=== PATIENT | male | born 1975 | race African-American/Black ===

== ENCOUNTER 2017-05-07 13:09 | Inpatient (IN) | payer MEDICARE ==
[~2017-05-07] VITALS: Ht 190.5 cm; Wt 161.1 kg
[2017-05-07] MEDS ORDERED: COREG25 MG PO (15:33)
[2017-05-07] MEDS ORDERED: NEURONTIN 300300 MG PO (15:34)
[2017-05-07] MEDS ORDERED: PHOSLO667 MG PO (15:34)
[2017-05-07] MEDS ORDERED: HYDROCODONE-APA1 TAB PO (15:35)
[2017-05-07] MEDS ORDERED: KLONOPIN1 MG PO (15:35)
[2017-05-07] MEDS ORDERED: ROCALTROL0.5 MCG PO (15:36)
--- NOTE | 2017-05-07 15:43 | NUR ---
PATIENT TO ROOM VIA WHEELCHAIR. PATIENT IS ALERT AND ORIENTED AT THIS TIME. PATIENT IS HERE FOR A CLOTTED L AVF. PATIENT DENIES ANY NEEDS OR COMPLAINTS AT THIS TIME. BED LOW AND LOCKED AT THIS TIME. FAMILY AT BEDSIDE. CPOC
[2017-05-07 16:35] VITALS: BP 139/77
[2017-05-07 16:36] VITALS: BMI 44.3
--- NOTE | 2017-05-07 17:29 | NUR ---
PATIENT REQUESTING HIS PAIN MEDICATION AND PHENAGREN. WILL PAGE FOR ORDERS. CPOC
--- NOTE | 2017-05-07 17:46 | NUR ---
WAITING SADDLE STITCHING MACHINE OPERATOR BACK FROM [facility]. CPOC
--- NOTE | 2017-05-07 18:20 | NUR ---
ROUNDS MADE, INFORMED PATIENT WAS ABOUT TO LEAVE. DENIES ANY NEEDS. CPOC
--- NOTE | 2017-05-07 20:56 | NUR ---
PT C/O PAIN IN LEFT AV FISTULA. STATES THAT HE WAS GIVEN HIS NORCO FOR PAIN AND IT IS NOT WORKING. MARINE PAGED AT 2057. TO GET ASSIST WITH PAIN IN LEFT ARM. PT ALSO ASK TO SPEAK WITH RESPRITORY REQARDING NEEDING A C-PAP. PT DENIES ANY OTHER NEEDS. NO S/S OF DISTRESS. BED LOW AND CALL LIGHT IN REACH WILL CPOC
--- NOTE | 2017-05-07 21:49 | NUR ---
PAGESujit HAWTHORNE AGAIN, PT C/O SEVERE PAIN. WILL CPOC
[2017-05-07 21:56] VITALS: BP 144/75
--- NOTE | 2017-05-07 22:32 | NUR ---
PT IN VERY SEVERE PAIN. IN LEFT ARM. CALLED THE ANSWERING SERVICE AGAIN AND THEY STATED THEY WOULD CALL TO WAKE HER UP. WILL CPOC
--- NOTE | 2017-05-07 23:00 | NUR ---
NEW ORDERS FROM MARINE. WILL PUT IN MAR AND GIVE TO PT ORDERED. WILL CPOC
[2017-05-08 06:09] VITALS: BP 127/64
--- NOTE | 2017-05-08 06:30 | NUR ---
PT ASLEEP, AT BED SIDE. NO S/S OF DISTRESS. WILL CPOC
--- NOTE | 2017-05-08 07:30 | NUR ---
PT SITTING UP IN BED SLEEPING EASY TO ARROUSE DENIES NEEDS WILL CONT TO MONITOR
[2017-05-08 08:43] VITALS: BP 116/65
--- NOTE | 2017-05-08 09:40 | NUR ---
CALLED DR STARK OFFICE AND SPOKE WITH YANNI. SHE SAID THAT PT IS ON SCHEDULE FOR SURGERY TODAY. PT SAYS NO ONE HAS SPOKEN TO HIM ABOUT IT AND NO ORDERS HAVE BEEN PLACED TO OBTAIN CONSENT. SHE SAID PEDRO WAS IN SURGERY AT THE MOMENT AND THAT SHE WOULD FIND OUT WHEN HE GETS BACK
[2017-05-08 10:40] LABS: BASOPHILS 0.3 % (0-2); EOSINOPHILS 4.6 % (0-7); HEMATOCRIT 34.6 % (42.0-54.0); HEMOGLOBIN 11.3 g/dL (13.5-17.5); LYMPHOCYTES 23.9 % (15-50); MCH 30.1 pg (26.0-34.0); MCHC 32.7 g/dL (31.0-37.0); MEAN PLATELET VOLUME 11.5 fL (7.4-10.4); MONOCYTES 6.3 % (2-11); NEUTROPHILS 63.9 % (40-80); PLATELET COUNT 140 10x3/uL (130-400); RBC 3.76 10x6/uL (4.20-6.10); RDW 16.7 % (11.5-14.5)
[2017-05-08 10:42] LABS: ANION GAP 21.3 mmol/L (8-16); CREATININE - SERUM 16.1 mg/dL (0.6-1.3)
[2017-05-08 10:45] LABS: POTASSIUM - SERUM 7.3 mmol/L (3.5-5.1)
--- NOTE | 2017-05-08 11:03 | NUR ---
LAB CALLED WITH CRITICAL RESULT OF POTASSIUM 7.3. REPORTED TO KRIS GONZALES APN. SHE SAID TO DO STAT DIALYSIS AND PLACE PT ON TELE. SHE CALLED DIALYSIS TO TELL THEM. PT WAS PLACED ON TELE SINUS RHYTHM, MILD ST ELEVATIONS WITH OCCASIONAL PVCS, ALL REPORTED TO KRIS. PT TAKEN BY WHEELCHAIR STAT TO DIALYSIS.
[2017-05-08 12:43] VITALS: Ht 190.5 cm; Wt 161.1 kg
[2017-05-08 13:09] VITALS: BP 129/65
[2017-05-08 17:17] VITALS: BP 99/57
--- NOTE | 2017-05-08 17:43 | NUR ---
PT SITTING UP IN BED ASLEEP, NO S/S DISTRESS NOTED. FAMILY AT BEDSIDE.
[2017-05-08 21:10] VITALS: BP 89/49
[2017-05-09 00:10] VITALS: BP 107/56
[2017-05-09 05:11] VITALS: BP 118/67
[2017-05-09 05:13] LABS: BASOPHILS 0.3 % (0-2); HEMATOCRIT 36.2 % (42.0-54.0); HEMOGLOBIN 11.8 g/dL (13.5-17.5); IMMATURE GRANULOCYTES 0.8 % (0-5); LYMPHOCYTES 25.7 % (15-50); MCH 30.3 pg (26.0-34.0); MCHC 32.6 g/dL (31.0-37.0); MCV 92.8 fL (80.0-100.0); MEAN PLATELET VOLUME 10.3 fL (7.4-10.4); MONOCYTES 8.7 % (2-11); NEUTROPHILS 60.5 % (40-80); PLATELET COUNT 131 10x3/uL (130-400); RDW 16.9 % (11.5-14.5); WBC 7.8 10x3/uL (4.8-10.8)
[2017-05-09 05:31] LABS: ANION GAP 20.7 mmol/L (8-16); CALCIUM 7.6 mg/dL (8.5-10.1); CARBON DIOXIDE 26.6 mmol/L (21.0-32.0); CREATININE - SERUM 14.2 mg/dL (0.6-1.3); POTASSIUM - SERUM 6.3 mmol/L (3.5-5.1)
--- NOTE | 2017-05-09 07:30 | NUR ---
RECEIVED PT IN BED AWAITING SURGICAL PROCEDURE NPO SINCE MIDNIGHT OFF GOING NURSE REPORTED RENAL WOULD REEVAL PT FOR SURGERY UPON ARRIVAL THIS MORNING K+ 6.3 CALLED AND REPORTED THIS TO SURGEY
--- NOTE | 2017-05-09 08:00 | NUR ---
SPOKE WITH KRIS JONES APN SHE STATED PT WOULD NEED TO GO TO DIALYSIS BEFORE SURGERY TO DECRESE 6.3 POTTASIUM
[2017-05-09 08:06] VITALS: BP 106/67
--- NOTE | 2017-05-09 09:30 | NUR ---
DR VASQUEZ NOTIFIED OF PT GOING TO DIALYSIS FOR 2 HOURS AND STATED WE WOULD NEED TO PUT PT ON SURGERY SCHEDULE FOR TOMORROW DUE TO HE WOULD NOT BE AVAILABLE LATER TODAY SPOKE WITH SURGERY AND RESCHEDULED FOR TOMORROW AT 10AM
[2017-05-09 15:31] VITALS: BP 100/56
[2017-05-09 21:08] VITALS: BP 118/55
[2017-05-10 01:27] VITALS: BP 104/60
[2017-05-10 06:21] LABS: BASOPHILS 0.3 % (0-2); EOSINOPHILS 3.9 % (0-7); HEMATOCRIT 37.4 % (42.0-54.0); HEMOGLOBIN 12.3 g/dL (13.5-17.5); IMMATURE GRANULOCYTES 0.8 % (0-5); LYMPHOCYTES 22.4 % (15-50); MCH 30.2 pg (26.0-34.0); MCHC 32.9 g/dL (31.0-37.0); MCV 91.9 fL (80.0-100.0); MEAN PLATELET VOLUME 11.7 fL (7.4-10.4); MONOCYTES 9.1 % (2-11); NEUTROPHILS 63.5 % (40-80); PLATELET COUNT 141 10x3/uL (130-400); RBC 4.07 10x6/uL (4.20-6.10); RDW 16.6 % (11.5-14.5); WBC 8.9 10x3/uL (4.8-10.8)
[2017-05-10 06:51] VITALS: BP 97/56
[2017-05-10 07:04] LABS: ANION GAP 19.6 mmol/L (8-16); CALCIUM 7.8 mg/dL (8.5-10.1); CARBON DIOXIDE 29.9 mmol/L (21.0-32.0); CREATININE - SERUM 12.9 mg/dL (0.6-1.3); POTASSIUM - SERUM 5.5 mmol/L (3.5-5.1)
--- NOTE | 2017-05-10 07:30 | NUR ---
RESTING QUIETLY AWAITING SURGICAL PROCEDURE
--- NOTE | 2017-05-10 07:40 | NUR ---
ASSESSMENT COMPLETED. TELEMERTY SHOWS SR 82. 02 AT 2 L/M PER NC.LEFT AC SL. AWAKE AND ALERT. WILL MONITOR
[2017-05-10 08:24] VITALS: BP 99/53
--- NOTE | 2017-05-10 10:57 | NUR ---
SURGERY DELAYED. WILL BE DONE LATER TODAY. PT NOTIFIED
[2017-05-10 12:11] VITALS: BP 109/64
--- NOTE | 2017-05-10 16:50 | NUR ---
PT PRE OP ED. TO OR PER BED
--- NOTE | 2017-05-10 19:20 | NUR ---
PT BACK VIA BED FROM PACU. VSS, AFEBRILE ON ARRIVAL. PT SEDATED, BUT AWAKENS TO VOICE. SATS LOW 90'S ON ROOM AIR. PT C/O NAUSEA AND PAIN, RATES @ 8/10 ON PAIN SCALE. BUPRENEX 0.2 MG IV AND PHENERGAN 25 MG IV GIVEN DILUTED WITH 20 ML NS FOR ADMINISTRATION. LEFT UPPER ARM WITH SURGICAL DRSG, CDI. LEFT RADIAL PULSE PALAPABLE AND GOOD CAP REFILL. [facility] ON MONITOR - HR 90-100. FAMILY IN AT THE BEDSIDE. WILL CONT TO MONITOR.
[2017-05-10 21:07] VITALS: BP 102/75
--- NOTE | 2017-05-10 22:57 | NUR ---
PT RESTING WELL. DENIES ANY FURTHER C/O PAIN. PT REMAINS SLEEPING, BUT EASILY AWAKENS TO VOICE. 2+ LEFT RADIAL PULSE PALPATED. GOOD CAP REFILL. WILL CONT TO MONITOR.
[2017-05-11 00:58] VITALS: BP 106/54
[2017-05-11 04:53] LABS: BASOPHILS 0.3 % (0-2); HEMOGLOBIN 11.7 g/dL (13.5-17.5); IMMATURE GRANULOCYTES 0.6 % (0-5); LYMPHOCYTES 13.9 % (15-50); MCH 29.9 pg (26.0-34.0); MCHC 32.5 g/dL (31.0-37.0); MCV 92.1 fL (80.0-100.0); MEAN PLATELET VOLUME 11.2 fL (7.4-10.4); NEUTROPHILS 75.2 % (40-80); PLATELET COUNT 148 10x3/uL (130-400); RBC 3.91 10x6/uL (4.20-6.10); RDW 16.4 % (11.5-14.5); WBC 9.9 10x3/uL (4.8-10.8)
[2017-05-11 05:09] LABS: ANION GAP 20.8 mmol/L (8-16); CARBON DIOXIDE 27.8 mmol/L (21.0-32.0); CREATININE - SERUM 15.6 mg/dL (0.6-1.3)
[2017-05-11 05:11] LABS: POTASSIUM - SERUM 6.6 mmol/L (3.5-5.1)
[2017-05-11 05:19] VITALS: BP 102/42
[2017-05-11 07:39] VITALS: BP 128/57
--- NOTE | 2017-05-11 07:51 | NUR ---
ASSESSMENT DONE. DENIES NEEDS.
--- NOTE | 2017-05-11 08:54 | NUR ---
TO HD PER BED
--- NOTE | 2017-05-11 09:54 | NUR ---
IN DIALYSIS AT THIS TIME. FAMILY AT BS. WILL CONT. PLAN OF CARE.
[2017-05-11 11:56] VITALS: BP 87/50
[2017-05-11 15:51] VITALS: BP 91/65
--- NOTE | 2017-05-11 17:58 | NUR ---
WITHOUT CHANGES OR DISTRESS NOTED AT THIS TIME. DENIES NEEDS.
[2017-05-11 19:00] VITALS: BP 117/64
[2017-05-12] VITALS: BP 135/88
[2017-05-12 04:00] VITALS: BP 125/76
[2017-05-12 05:15] LABS: BASOPHILS 0.3 % (0-2); EOSINOPHILS 3.5 % (0-7); HEMATOCRIT 31.3 % (42.0-54.0); HEMOGLOBIN 10.3 g/dL (13.5-17.5); IMMATURE GRANULOCYTES 0.5 % (0-5); LYMPHOCYTES 22.5 % (15-50); MCH 29.8 pg (26.0-34.0); MCHC 32.9 g/dL (31.0-37.0); MCV 90.5 fL (80.0-100.0); MEAN PLATELET VOLUME 11.9 fL (7.4-10.4); MONOCYTES 8.3 % (2-11); NEUTROPHILS 64.9 % (40-80); PLATELET COUNT 120 10x3/uL (130-400); RBC 3.46 10x6/uL (4.20-6.10); RDW 16.1 % (11.5-14.5); WBC 7.6 10x3/uL (4.8-10.8)
[2017-05-12 05:32] LABS: ANION GAP 18.5 mmol/L (8-16); CARBON DIOXIDE 28.7 mmol/L (21.0-32.0); POTASSIUM - SERUM 4.2 mmol/L (3.5-5.1)
[2017-05-12 05:57] LABS: CALCIUM 6.8 mg/dL (8.5-10.1)
--- NOTE | 2017-05-12 07:45 | NUR ---
ASSESSMENT DONE. DENIES NEEDS. TO OR PER BED
--- NOTE | 2017-05-12 08:30 | NUR ---
HEMOSPLIT TO RIGHT SIDE CHEST.
--- NOTE | 2017-05-12 09:32 | NUR ---
RECIVED FROM RR. TO HD PER ORDERS
--- NOTE | 2017-05-12 11:52 | OP ---
PATIENT NAME: TONY MOREAU MEDICAL RECORD: [id number] :75 LOCATION:D. D.2123 ADMISSION DATE:05/07/17 SURGEON: DARREL VASQUEZ MD DATE OF OPERATION: 05/12/2017 REFERRING PHYSICIAN: Dr. Joel Puri. 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 OPERATION PERFORMED: Insertion of a 23 cm HemoSplit tunneled dialysis catheter via the right internal jugular vein with ultrasound-guided access and fluoroscopy guidance. SURGEON: Darrel Vasquez MD ANESTHESIA: TIVA team with propofol per TERMINAL SYSTEM OPERATOR and local 1% lidocaine. PREOPERATIVE NOTE: Mr. Moreau is a 41-year-old -[place] male from [place] who has end-stage renal disease and is on chronic hemodialysis there in [place]. He has dialyzed for several years successfully with a left upper extremity brachiocephalic AV fistula, though he has had problems with recurring cephalic arch stenosis which had been dilated and stented in the past and just recently last week, I believe, Dr. Puri performed a stenting of the intrastent stenosis in the cephalic arch placing a PTFE covered stent within the previously inserted bare metal stent to treat that stenosis. As a result, flow increased in his fistula and he for the first time developed symptoms of steal syndrome in his right hand. He was admitted to the hospital last week and I was able to get him to the operating room only on Thursday due to scheduling difficulties in the OR. I performed a ZULUAGA banding with a fistulogram and selective brachial arteriogram at that time. The banding did indeed successfully reduce flow in the fistula; however, the fistula has now thrombosed despite Plavix therapy, which was initiated the day of that operation. He needs to dialyze and so he is brought to the operating room this morning to have a HemoSplit catheter inserted with plans for him to have dialysis later this morning and then later today be returned to the operating room where under general anesthesia, I will plan to perform an open thrombectomy and revision and at this time, I am planning to proximalize the arterial anastomosis using a PTFE jump graft from the proximal brachial artery. This should allow significant increased flow in the fistula to help keep it open and at the same time yield substantial relief of steal symptoms. Blood loss during the procedure today was insignificant and unreplaced. All sponges, instruments, and needles were accounted for. No drain was used and no surgical specimen was submitted for histopathology. TRANSINT:[id number] Voice Confirmation ID: [id number] DOCUMENT ID: [id number] OPERATIVE REPORT [id number] TONY MOREAU JAMES MD at 1152 CC: OLIVIA RODRIGUEZ MD [id number] DICTATION DATE: 05/12/17 0846 COMPUTER TRAINER: 05/12/17 1106 ADM IN [facility] [address] [place] [address]
--- NOTE | 2017-05-12 11:52 | OP ---
PATIENT NAME: TONY MOREAU MEDICAL RECORD: [id number] :75 LOCATION:D. D.2123 ADMISSION DATE:05/07/17 SURGEON: DARREL VASQUEZ MD DATE OF OPERATION: 05/10/2017 REFERRING PHYSICIAN: Dr. Joel Puri PREOPERATIVE DIAGNOSES: End-stage renal disease and dependence on hemodialysis, mechanical complication of arteriovenous fistula left arm, steal syndrome. POSTOPERATIVE DIAGNOSES: End-stage renal disease and dependence on hemodialysis, mechanical complication of arteriovenous fistula left arm, steal syndrome. OPERATION PERFORMED: Fistulogram and selective left brachial arteriogram and open Mcpherson banding of AV fistula. SURGEON: Darrel Vasquez MD ANESTHESIA: General with LMA per STATISTICAL METHODS PROFESSOR. PREOPERATIVE NOTE: Mr. Moreau is a 41-year-old -[place] male from [place], he has end-stage renal disease and has been dialyzing for several years with a left brachiocephalic AV fistula. He has had problems with cephalic arch stenoses and has had a prior bare metal stent inserted in the cephalic arch. He had developed intrastent recurrent stenoses and recently Dr. Puri treated him with placement of a PTFE covered stent in the cephalic arch, which relieved his recurrent cephalic arch stenosis. Subsequent to that, he developed pain in the hand, believed to be due to steal syndrome. The patient's hand preoperatively is warm and pink with a faintly palpable radial artery pulse. There are no areas of ulceration or gangrene. He is brought to the operating room at this time to perform a banding procedure. DESCRIPTION OF PROCEDURE: With the patient under anesthesia in supine position, was prepped and draped in sterile manner. I examined him first with hand-held duplex ultrasound and also a hand-held continuous wave Doppler and noted the pulsatile waveform in the radial artery at the wrist and identified the anatomy of the juxta-anastomotic segment in the upper arm and antecubital space. I made a transverse incision and exposed and dissected circumferentially the juxta-anastomotic segment. I then accessed the fistula at about the mid humeral point with micropuncture technique, this led up to placement of a 6-Serbian introducer. I then advanced a 0.035 angled Glidewire distally through the fistula and over the arterial anastomosis and proximally into the brachial artery. I inserted a glide catheter over that and performed a selective brachial artery arteriogram, which did demonstrate flow into the distal brachial artery below the arterial anastomosis. I then placed a 4 mm diameter balloon in the juxta-anastomotic segment and placed two 2-0 Prolene ligatures around the fistula over the balloon and these were tied down snugly with the balloon kept at 15 atmospheres of pressure inflation. Two ties were only a few millimeters apart. The balloon was deflated and removed and I noted that there was a definite improvement in the palpable radial pulse and there was improvement with the appearance of the polyphasic pulsatile waveform by Doppler at the wrist in the radial artery. I repeated the selective brachial artery arteriogram and saw the very poor flow in the fistula. I then inserted a 5-mm balloon with the OPERATIVE REPORT [id number] TONY MOREAU intent of stretching the initially placed Prolene ligatures. However, I was unable to pass a balloon through the iatrogenic stenosis, so the 2 Prolene sutures were removed. The 5-mm balloon advanced into the JA segment and a new single 2-0 Prolene ligature tied down over the balloon inflated to 15 atmospheres. The balloon was then removed and I noted that there was an improved radial artery pulse at the wrist and Doppler demonstrated a multiphasic waveform, not quite as good or strong as previously after the banding over a 4-mm balloon. I repeated the selective brachial arteriogram and this time noted some increased flow in the fistula and still good flow distally into the forearm. In my opinion this was a satisfactory point of compromise. There was increased flow definitely to the hand as manifested primarily by increasing palpable pulsation in the radial artery and the improvement in the Doppler arterial flow waveform. There was maintenance of flow in the fistula as well. I am concerned that the reduced flow could lead to thrombosis and clotting of the fistula and so we will begin the patient on Plavix this evening. I think he should be considered for long-term either Plavix or other anticoagulation. The patient was awakened and taken to the recovery room in stable condition with a soft bruit audible over his fistula and rather weak palpable pulsation within this steph fistula. There was no blood loss during the procedure. All sponges, instruments and needles were accounted for. The wound was closed with interrupted inverted 3-0 Vicryl and running intracuticular 4-0 Monocryl and Dermabond glue and dressed with Maxorb Ag, Tegaderm and Cavilon skin prep. PLAN: The patient will be started on Plavix tonight. He will be observed in the morning. If he is due for dialysis, he will have dialysis here again tomorrow. We need to document that this fistula is patent before he is allowed to leave to go home to [place] tomorrow. TRANSINT:[id number] Voice Confirmation ID: [id number] DOCUMENT ID: [id number] DARREL VASQUEZ MD at 1152 CC: KHALIF ROLDAN III MD, OLIVAI VALERA MD and JOEL PURI [id number] DICTATION DATE: 05/10/171912 INSURANCE ACCOUNT ASSISTANT: 05/10/172053 ADM IN [facility] [address] [id number]
--- NOTE | 2017-05-12 13:13 | NUR ---
Nutrition Follow Up: Pt is NPO at this time. Pt to go to OR for hemosplit placement today. Wt stable. +BM 05/08/17. Meds and labs reviewed. Rec resume diet when medically feasible. RD following.
--- NOTE | 2017-05-12 13:30 | NUR ---
RETURN FROM HD TO OR PER BED
--- NOTE | 2017-05-12 14:54 | NUR ---
RICK LOT [id number] EXP 03/22/18
--- NOTE | 2017-05-12 17:23 | NUR ---
RECIVED FROM RR PER BED. LT ARM DRSG C/D. GOOD B&T. FAMILY AT SIDE. WITHOUT DISTRESS NOTED AT THIS TIME.
--- NOTE | 2017-05-12 19:17 | NUR ---
MELITON ROACH GIVEN AT PT REQUEST. MULTIPLE FAMILY MEMBERS AT BED SIDE, PTS BP ELEVATED 190/95. PT C/O PAIN TO LEFT ARM, CATINA DAY SHIFT NURSE EXPLAINED TO PT THAT HE HAD JUST HAD HIS PAIN SHOT IN RECOVERY BUT WE CAN GIVEN HIM A NORCO NOW, PT DECLINED THE PAIN PILL, WANTS THE PAIN SHOT, INFORMED HIM THAT IT WILL BE CLOSER TO 9:15 BEFORE I CAN BRING IT IN.
--- NOTE | 2017-05-12 19:43 | NUR ---
CHANGED DISPOSABLE BP CUFF TO LARGER MAROON CUFF, BP RECHECKED, 121/67. NORCO 1 TAB GIVEN FOR C/O PAIN TO LEFT ARM, RATES PAIN AT A 10 ON PAIN SCALE. PHENERGAN 25 MG GIVEN ALONG WITH NORCO TO PREVENT NAUSEA.
[2017-05-12 20:23] VITALS: BP 109/105
--- NOTE | 2017-05-13 01:05 | NUR ---
PT IN BED RESTING QUIETLY. BED IN LOW POSITION, CALL LIGHT WITHIN REACH. WILL CTM.
[2017-05-13 01:50] VITALS: BP 90/63
--- NOTE | 2017-05-13 04:07 | NUR ---
PHENERGAN 25 MG GIVEN FOR C/O NAUSEA.
--- NOTE | 2017-05-13 04:41 | NUR ---
BUPRENEX 0.2 MG GIVEN FOR C/O PAIN TO LEFT ARM, RATES PAIN AT A 9 ON PAIN SCALE. ICE PACK GIVEN AND LAID ON TOP OF LEFT ARM.
[2017-05-13 05:01] LABS: BASOPHILS 0.2 % (0-2); EOSINOPHILS 0.9 % (0-7); HEMATOCRIT 34.5 % (42.0-54.0); HEMOGLOBIN 11.4 g/dL (13.5-17.5); IMMATURE GRANULOCYTES 0.7 % (0-5); LYMPHOCYTES 7.7 % (15-50); MCV 90.8 fL (80.0-100.0); MONOCYTES 8.3 % (2-11); NEUTROPHILS 82.2 % (40-80); PLATELET COUNT 124 10x3/uL (130-400); RDW 16.3 % (11.5-14.5)
[2017-05-13 05:11] LABS: WBC 9.8 10x3/uL (4.8-10.8)
[2017-05-13 05:31] LABS: ANION GAP 16.8 mmol/L (8-16); CALCIUM 7.1 mg/dL (8.5-10.1); CARBON DIOXIDE 24.1 mmol/L (21.0-32.0); CREATININE - SERUM 15.8 mg/dL (0.6-1.3)
[2017-05-13 05:32] LABS: POTASSIUM - SERUM 5.9 mmol/L (3.5-5.1)
[2017-05-13 05:54] VITALS: BP 121/61
[2017-05-13 07:00] VITALS: BP 114/60
--- NOTE | 2017-05-13 10:00 | NUR ---
IN DIALYSIS AT THIS TIME. WILL CONT. PLAN OF CARE.
[2017-05-13 15:07] VITALS: BP 109/57
--- NOTE | 2017-05-13 17:59 | NUR ---
PATIENT IN BED RESTING AT THIS TIME. PATIENT STATES "IM NOT SICK TO MY STOMACH ANYMORE." NO COMPLAINTS OF PAIN OR DISCOMFORT NOTED AT THIS TIME. CALL LIGHT AND WATER ARE WITHIN REACH. IS AT BEDSIDE
--- NOTE | 2017-05-13 19:33 | NUR ---
ASSESSMENT COMPELTE, A&O, RESPERATIONS EVEN AND UNALABORED ON RA. IV TO RIGHT AC SL, SITE CLEAN AND DRY. RIGHT CHEST HEMOSPLIT WITH DRSG INTACT. AV FISTUA TO LEFT ARM (+,+). SMALL DRSGS NOTED FROM THROMBECTOMY DONE ON 05/12/17. PT STATED THAT ARM IS FEELING BETTER TODAY THEN FROM YESTERDAY AND IS NOW ABLE TO LIFT HIS ARM UP AND MOVE IT AROUND. ICE PACK GIVEN AT PT REQUEST TO HELP EASE THE SWELLING AND PAIN, ALSO ELEVATED LEFT ARM ON PILLOW. PTS REMIANS AT BED SIDE, BED LOW, CL IN REACH, NO OTHER NEEDS EXPRESSED AT THIS TIME, BED LOW, CL IN REACH.
[2017-05-13 21:14] VITALS: BP 98/57
--- NOTE | 2017-05-13 22:04 | NUR ---
HS MEDS GIVEN WITH FRESH ICE WATER.
[2017-05-14 01:16] VITALS: BP 117/59
--- NOTE | 2017-05-14 01:36 | NUR ---
BUPRENEX 0.3 MG GIVEN FOR C/O PAIN, RATES PAIN AT AN 8 ON PAIN SCALE. ICE PACK GIVEN AND PLACED ON LEFT ARM. ASLEEP AT BED SIDE.
--- NOTE | 2017-05-14 02:36 | NUR ---
RESTING WITH EYES CLOSED, RESPERATIONS EVEN, NO S/S DISTRESS NOTED.
[2017-05-14 05:39] VITALS: BP 107/55
--- NOTE | 2017-05-14 07:25 | NUR ---
ASSESSMENT COMPLETED.O2 AT 2 L/M PER NC. TELEMERTY SHOWS SR. RIGHT CHEST HEMOSPLIT AND RIGHT AC SL. LEFT AVF. DENIES ANY NEEDS AT PRESENT TIME. WILL MONITOR
--- NOTE | 2017-05-14 07:30 | NUR ---
ASSESSMENT COMPLETED. DENIES ANY NEEDS. LEFT ARM SL TELEMETRY SHOWS SR 64 PRER AND TAKEN TO PET SITTER.
[2017-05-14 07:49] VITALS: BP 90/56
--- NOTE | 2017-05-14 08:05 | NUR ---
RESP UL ON . AT BS. CALL LIGHT IN REACH. WILL MONITOR NEEDS.
--- NOTE | 2017-05-14 10:00 | OP ---
PATIENT NAME: TONY MOREAU MEDICAL RECORD: [id number] :75 LOCATION:D. D.2123 ADMISSION DATE:05/07/17 SURGEON: DARREL VASQUEZ MD DATE OF OPERATION: 05/12/2017 REFERRING PHYSICIAN: Joel Puri SURGEON: Darrel Vasquez MD ANESTHESIA: General by LMA per HOGSHEAD ROLLER. PREOPERATIVE DIAGNOSIS: Thrombosis of left arm AV fistula subsequent to banding procedure done approximately 48 hours ago to treat steal syndrome in the left upper extremity. POSTOPERATIVE DIAGNOSIS: Thrombosis of left arm AV fistula subsequent to banding procedure done approximately 48 hours ago to treat steal syndrome in the left upper extremity. OPERATION PERFORMED: Open revision and thrombectomy of AV fistula, left upper extremity brachiocephalic. PREOPERATIVE NOTE: Mr. Moreau is a 41-year-old -[place] male from [place], who has been on hemodialysis for a considerable period of time with a left brachiocephalic AV fistula. He has had recurring cephalic arch stenoses, which was treated with a stent and he subsequently developed an intrastent stenosis, which Dr. Puri recently treated with an intrastent PTFE covered balloon. It was thought that that restored significant flow in the fistula, and subsequent to that, he developed steal symptoms in his left hand. He was admitted to the hospital for banding or proximal elevation of his fistula. His banding was not able to be done until Thursday, this past weekend. At that time, I placed a single Prolene ligature around the JA segment of the fistula over a fully inflated 5-mm diameter balloon. When this had been done around with a 4-mm balloon and when 2 ligatures were used, it excessively diminished flow in the fistula. I still was concerned after the procedure that thrombosis of the fistula was possible and I placed him on Plavix; however, it apparently thrombosed anyway. His fistula was seemingly without pulsation, thrill, or bruit. Attempts to dialyze him with the fistula on Thursday were unsuccessful. He was brought to the operating room earlier today just for placement of a HemoSplit catheter as he needed to have dialysis before he could have another operation. He has had dialysis successfully today and now he is returned to the operating room for general anesthesia and revision of the left arm fistula. I am hopeful that ligating the fistula distally and proximalizing the arterial origin to the proximal brachial artery or axillary artery will provide enough flow to keep the fistula open and at the same time relieve his steal symptoms. PROCEDURE: Under anesthesia, in supine position, the patient's left arm and axilla were prepped and draped in a sterile manner. I reopened the transverse incision at the antecubital level and removed the Prolene suture from the JA segment. I massaged the segment a little bit and then noted that the patient had restored pulsation in the fistula with a soft thrill. I made an incision then on the medial aspect of the upper arm and exposed the brachial artery, which was controlled with proximal and distal Silastic loops. The brachial artery was quite large, being in about 12 to 14 mm in diameter. The patient was systemically heparinized and the fistula then ligated just immediately proximal OPERATIVE REPORT [id number] TONY MOREAU to the arterial anastomosis. The ligation performed with #0 silk. The fistula was clamped proximally and venotomy made in the JA segment. The wall of that segment was quite thickened and partially calcified and there was organized clot within it. I removed clot from that segment and from the body of the fistula with a 5-Nigerien Afua embolectomy catheter. Most of the clot that I removed was organized and not fresh. I do not think that he had actually had an obstructing or occlusive thrombus, I think just his flow had been so slow and sluggish through this very large fistula that it was essentially nonfunctional. At any rate, after thrombectomy, I flushed the fistula with heparinized saline and then again it was clamped. I took a 6-mm standard wall Propaten PTFE graft, beveled it in, and anastomosed it end-to-side to the venotomy in the fistula. This was done with running 6-0 Prolene and the suture line was additionally sealed with BioGlue. The graft was flushed with heparinized saline, and when clamps were removed, the suture line was hemostatic. I passed the graft through a subcutaneous tunnel on the medial aspect of the arm up to the proximal incision and anastomosed it there to the brachial artery. That was done with the brachial artery occluded with Silastic loops and an arteriotomy of approximately 7 mm diameter. The anastomosis was done end of graft to side of artery with running 6-0 Prolene. The patient's heparin was partially reversed with 20 mg of protamine. The wound was irrigated with Ancef and gentamicin solution. I infiltrated and irrigated with 0.25% Marcaine without epinephrine. Doppler examination confirmed good flow in the fistula now with a palpable thrill and pulsation. I confirmed also good Doppler continuous pulsatile flow in the brachial artery distal to the antecubital level and in the radial artery at the wrist. The wounds were then closed with interrupted inverted 3-0 Vicryl, running intracuticular 4-0 Monocryl, and Dermabond glue. They were further dressed with Maxorb Ag, Tegaderm, and Cavilon skin prep. The patient was then awakened and taken to the recovery room. Blood loss throughout was about 10 cc, none was replaced intraoperatively. All sponges, instruments, and needles were accounted for. No drain was used and no specimen was submitted for histopathology. I did not perform an angiogram. PLAN: The patient will be observed here in the hospital overnight. If he needs dialysis, he can dialyze here tomorrow. If not, he can resume his usual dialysis schedule in [place]. I believe that he can be dialyzed now or we should be trying to dialyze him with his established left arm fistula and assuming that it continues to work, then he can be scheduled for removal of his tunneled dialysis catheter at the [facility] here in [place], but I would schedule him for that same day to have an angiogram of his left fistula before taking out the catheter. Also, I will continue him on Plavix. TRANSINT:[id number] Voice Confirmation ID: [id number] DOCUMENT ID: [id number] DARREL VASQUEZ MD at 1000 CC: KHALIF ROLDAN III MD, OLIVIA VALERA MD and JOEL PURI [id number] DICTATION DATE: 05/12/171652 CONSTRUCTION SAFETY CONSULTANT: 05/12/17 866 ADM IN [facility] [address] [facility], [facility]
--- NOTE | 2017-05-14 11:31 | NUR ---
BACK FROM TORCH HEATER. V/S STABLE. RIGHT GROIN SOFT WITH DRSG DRY AND INTACT. TELEMERTY SHOWS SR. WILL MONITOR
[2017-05-14 12:05] VITALS: BP 104/63
--- NOTE | 2017-05-14 15:34 | NUR ---
PT DCD . IV DCD WITH TIP INTACT. INSTRUCTIONS GIVEN TO PT. TO PRIVATE CAR PER WHEELCHAIR
--- NOTE | 2017-05-14 17:19 | NUR ---
Patient Name: TONY MOREAU Admission Status: Urgent Accout number: [id number] Admission Date: 05-07-2017 : 1975 Admission Diagnosis:OTH COMPLICATION OF VASCULAR PROSTH DEV/JOAN INEVA Attending: INDU HAY Current LOS: 7 Anticipated DC Date: 05-14-2017 Planned Disposition: Home Primary Insurance: MEDICARE A & B LATE ENTRY: Discharge Planning Comments: * Is the patient Alert and Oriented? Yes 0 * How many steps to enter\exit or inside your home? NONE 0 * PCP STEF[facility]IE [facility] 0 * Pharmacy [facility] [address] 0 * Preadmission Environment Home with Family 0 * ADLs Independent 0 * Equipment CPAP 0 * Other Equipment [facility], MEDICAL EQUIPMENT PROVIDER 0 * List name and contact numbers for known caregivers / representatives who currently or will assist patient after discharge: MISTY MOREAU, SPOUSE, ENDY MOREAU, MOTHER, 0 * Community resources currently utilized Other 0 * Please name any agencies selected above. OUTPATIENT DIALYSIS, [facility], MWF, 0630AM, PT DRIVES SELF 0 * Additional services required to return to the preadmission environment? No 0 * Can the patient safely return to the preadmission environment? Yes 0 * Has this patient been hospitalized within the prior 30 days at any hospital? Yes 0 CM MET WITH PT AND SPOUSE IN ROOM TO DISCUSS DISCHARGE PLANNING AND NEEDS. PT REPORTS LIVING AT HOME INDEPENDENTLY WITH SPOUSE. PT HAS CPAP FROM [facility]; PT HAS NO OUTSIDE SERVICES ASSISTING IN THE HOME. CM DISCUSSED AVAILABILITY OF HOME HEALTH, REHAB SERVICES AND MEDICAL EQUIPMENT. PT DENIES DISCHARGE NEEDS, REPORTS HIS IS HERE TO PICK HIM UP FOR DISCHARGE HOME. IMPORTANT MESSAGE FROM MEDICARE PROVIDED AND EXPLAINED. Shop Welder: Silas Sy
--- NOTE | 2017-05-15 10:46 | DS ---
PATIENT:TONY MOREAU :75 MEDICAL RECORD: [id number] DISCHARGE SUMMARY ADMISSION DATE: 05/07/17 DISCHARGE DATE: 05/14/17 HOSPITAL COURSE: He was admitted with access failure. He had his access revised due to steal syndrome. He is still having a little tingling in his hands and he is asking for pain medications around the clock. Hopefully, there is some reperfusion. He does want to go home and his narcotics were being handled by his primary student services vice president as he gets these filled every month due to one pain problem after the other. He has elected to continue his dialysis catheter even though I did discuss the risks of infection. He will have to come back up to have it removed, but at least on the available if we are not able to stick his access. PHYSICAL EXAMINATION: VITAL SIGNS: Vital signs are stable. He is afebrile. GENERAL: He is alert and oriented times 3. HEENT: Normocephalic and atraumatic. Clear nares. Clear throat. NECK: No JVD or thyromegaly. Right IJ tunneled catheter with no oozing. EXTREMITIES: Left hand is warm now, accessed without any oozing and a good thrill and bruit in his access and incision is clean. Trace lower extremity edema. ABDOMEN: Nontender. Labs consistent with ESRD yesterday. He did not want us to draw his lab this morning and of course his hematocrit could be of concern, but he has not had any bleeding. He understands the risks. He will continue all of his home medications at home, I did not change anything here. He will obtain his pain medications. Continue renal diet with fluid restriction and followup dialysis as scheduled. Stable on discharge. More than 30 minutes spent with he and his significant other. TRANSINT:[id number] Voice Confirmation ID: [id number] DOCUMENT ID: [id number] NNEKA SANCHEZ MD at 1046 CC: [id number] DICTATION DATE: 05/14/17 1158 ENGAGEMENT LEAD: 05/14/17 1310 DIS IN 05/14/17 [id number] [place] [address]
== END 2017-05-14 15:36 | disposition home or self-care (01) | DRG 252 ==
LOC: D.M2 13:09 → D.SDCHOLD 13:52 → D.M2 15:02
PROVIDERS: Internal Medicine Nephrology; Surgery; ADMIT Internal Medicine
PROC: 5A1D70Z Performance of Urinary Filtration, Intermittent, Less than 6 Hours Per Day (ICD-10-PCS; 2017-05-08)
PROC: B31J1ZZ Fluoroscopy of Left Upper Extremity Arteries using Low Osmolar Contrast (ICD-10-PCS; 2017-05-10)
PROC: B51W1ZZ Fluoroscopy of Dialysis Shunt/Fistula using Low Osmolar Contrast (ICD-10-PCS; principal; 2017-05-10 16:51)
PROC: 03V Upper Arteries, Restriction (ICD-10-PCS; 2017-05-10 16:51)
PROC: 03C83ZZ Extirpation of Matter from Left Brachial Artery, Percutaneous Approach (ICD-10-PCS; 2017-05-12)
PROC: 05C Upper Veins, Extirpation (ICD-10-PCS; 2017-05-12)
PROC: 05CF0ZZ Extirpation of Matter from Left Cephalic Vein, Open Approach (ICD-10-PCS; 2017-05-12)
PROC: 05HM33Z Insertion of Infusion Device into Right Internal Jugular Vein, Percutaneous Approach (ICD-10-PCS; 2017-05-12)
PROC: B543ZZA Ultrasonography of Right Jugular Veins, Guidance (ICD-10-PCS; 2017-05-12)
PROC: B5131ZA Fluoroscopy of Right Jugular Veins using Low Osmolar Contrast, Guidance (ICD-10-PCS; 2017-05-12)
DX: T82.898A Other specified complication of vascular prosthetic devices, implants and grafts, initial encounter (principal); N18.6 End stage renal disease; I12.0 Hypertensive chronic kidney disease with stage 5 chronic kidney disease or end stage renal disease; Y83.9 Surgical procedure, unspecified as the cause of abnormal reaction of the patient, or of later complication, without mention of misadventure at the time of the procedure; Z99.2 Dependence on renal dialysis; F41.8 Other specified anxiety disorders; E87.5 Hyperkalemia; Z87.891 Personal history of nicotine dependence

== ENCOUNTER 2020-10-01 14:51 | Inpatient (IN) | payer MEDICARE, BC ==
[~2020-10-01] VITALS: Ht 188 cm; Wt 169.6 kg
[~2020-10-01 14:51] MED LIST: COREG25 MG PO; HYDROCODONE-APA1 TAB PO; KLONOPIN1 MG PO; NEURONTIN 300300 MG PO; PHOSLO667 MG PO; ROCALTROL0.5 MCG PO
[2020-10-01] MEDS ORDERED: COREG6.25 MG PO (15:23)
[2020-10-01] MEDS ORDERED: HYDROCODON-ACE1 EA10 PO (15:26)
[2020-10-01] MEDS ORDERED: ATARAX 25 MG TA25 MG PO (15:27)
[2020-10-01 15:43] LABS: CALCIUM 7.4 mg/dL (8.5-10.1); CARBON DIOXIDE 21.5 mmol/L (21.0-32.0); CREATININE - SERUM 17.4 mg/dL (0.6-1.3); POTASSIUM - SERUM 5.5 mmol/L (3.5-5.1)
[2020-10-01 15:46] LABS: BASOPHILS 0.1 % (0-2); EOSINOPHILS 6.5 % (0-7); HEMATOCRIT 36.5 % (42.0-54.0); IMMATURE GRANULOCYTES 1.4 % (0-5); LYMPHOCYTE ABS# 1.31 10x3/uL (1.32-3.57); LYMPHOCYTES 16.4 % (15-50); MCH 25.6 pg (26.0-34.0); MCHC 32.9 g/dL (31.0-37.0); MONOCYTES 7.6 % (2-11); NEUTROPHIL ABS# 5.42 10x3/uL (1.78-5.38); RBC 4.68 10x6/uL (4.20-6.10); RDW 17.1 % (11.5-14.5)
[2020-10-01 15:48] LABS: PLATELET COUNT 166 10x3/uL (130-400)
[2020-10-01 15:50] LABS: INR 1.17 (0.85-1.17); PROTIME 13.8 SECONDS (11.6-15.0)
[2020-10-01 15:58] VITALS: BMI 48.1
[2020-10-01 17:01] VITALS: BP 137/80
--- NOTE | 2020-10-01 18:21 | NUR ---
PT ASKING FOR SOMETHING FOR ITCHING. CALLED KRIS GONZALES APRN, NEW ORDER FOR 25MG OF BENADRYL PO Q8PRN.
[2020-10-01 20:00] VITALS: BP 150/80
[2020-10-02] VITALS: BP 160/81
[2020-10-02 04:00] VITALS: BP 143/79
[2020-10-02 08:34] VITALS: BP 158/72
--- NOTE | 2020-10-02 10:17 | NUR ---
PATIENT BEING TAKEN BACK FOR SURGERY AT THIS TIME.
[2020-10-02 10:50] LABS: APTT 29.7 SECONDS (22.8-39.4); INR 1.16 (0.85-1.17); PROTIME 13.8 SECONDS (11.6-15.0)
[2020-10-02 11:01] LABS: CALCIUM 7.5 mg/dL (8.5-10.1); CARBON DIOXIDE 16.5 mmol/L (21.0-32.0); CREATININE - SERUM 19.8 mg/dL (0.6-1.3)
[2020-10-02 11:12] LABS: ANION GAP 27.7 mmol/L (8-16); PHOSPHOROUS 9.3 mg/dL (2.5-4.9)
[2020-10-02 11:13] LABS: POTASSIUM - SERUM 7.2 mmol/L (3.5-5.1)
[2020-10-02 12:12] VITALS: BMI 48.0
[2020-10-02 13:13] LABS: ALBUMIN 3.1 g/dL (3.4-5.0); ANION GAP 22.2 mmol/L (8-16); BILIRUBIN - TOTAL 0.3 mg/dL (0.2-1.3); CALCIUM 7.1 mg/dL (8.5-10.1); CARBON DIOXIDE 18.9 mmol/L (21.0-32.0); CREATININE - SERUM 19.2 mg/dL (0.6-1.3); PROTEIN - SERUM 6.1 g/dL (6.4-8.2)
[2020-10-02 13:14] LABS: POTASSIUM - SERUM 7.1 mmol/L (3.5-5.1)
--- NOTE | 2020-10-02 14:00 | NUR ---
SURGERY CALLS NURSE TO TALK TO HER ABOUT PATIENT GOING TO [facility] FOR POTASSIUM BEING EXTREMELY ELEVATED. NURSE CALLS DIALYSIS TO LET THEM KNOW.
[2020-10-02 14:10] LABS: CALCIUM 7.1 mg/dL (8.5-10.1); CARBON DIOXIDE 19.3 mmol/L (21.0-32.0); CREATININE - SERUM 19.5 mg/dL (0.6-1.3)
[2020-10-02 14:11] LABS: ANION GAP 23.7 mmol/L (8-16)
[2020-10-02 16:14] LABS: BASOPHILS 0.1 % (0-2); HEMATOCRIT 33.4 % (42.0-54.0); HEMOGLOBIN 11.1 g/dL (13.5-17.5); IMMATURE GRANULOCYTES 1.1 % (0-5); LYMPHOCYTE ABS# 1.13 10x3/uL (1.32-3.57); LYMPHOCYTES 9.2 % (15-50); MCH 25.8 pg (26.0-34.0); MCHC 33.2 g/dL (31.0-37.0); MCV 77.7 fL (80.0-100.0); MEAN PLATELET VOLUME 9.9 fL (7.4-10.4); NEUTROPHIL ABS# 9.98 10x3/uL (1.78-5.38); NEUTROPHILS 81.6 % (40-80); PLATELET COUNT 151 10x3/uL (130-400); RDW 17.3 % (11.5-14.5)
[2020-10-02 16:17] LABS: WBC 12.2 10x3/uL (4.8-10.8)
--- NOTE | 2020-10-02 19:25 | NUR ---
pt received back to room from dialysis via bed. c/o lue and right shoulder pain, vital signs checked per JIMMIE Gaspar LPN. PRN norco given at pt request
--- NOTE | 2020-10-02 20:45 | NUR ---
reassessed pt pain, pt lying in bed when aske dif PRN norco has improved pain pt nodded yes.
--- NOTE | 2020-10-02 21:45 | NUR ---
pt pressed call light, moaning and groaning wants soemthing else for pain, wants to know if he should call his MD in [place] to take care of his pain. States that nothing has improved his pain. Nurse asked pt if he remembered her checking on his pain after PRN norco was given earlier pt reports that no one has checked on him. Nurse reminded pt of her visit in the room, pt reminded pt of the nurses visit to reassess pain and pt had stated that the previously administered norco had helped. Pt continues to be upset wants md called for soemthing stronger
--- NOTE | 2020-10-02 21:50 | NUR ---
NEW ORDER TO REPEAT NORCO [address] HOUSTON. WENT TO GIVE PT NORCO HE DID NOT WANT TOT ALEXA THIS WANTS SOEMTHING IV. CALLED DR HOUSTON AGAIN RECEIVED ORDER TO GIVE NORCO ALREADY ORDERED NO IV PAIN MEDS. DISCUSSED WITH CHARGE NURSE WHO TOOK PT NORCO 10 TO PT.
[2020-10-02 23:13] VITALS: BP 157/76
[2020-10-03 01:35] VITALS: BP 129/73
[2020-10-03 05:57] VITALS: BP 116/73
[2020-10-03 07:16] VITALS: Ht 188 cm; Wt 169.6 kg
[2020-10-03 08:00] VITALS: BP 153/86
[2020-10-03 10:21] LABS: BASOPHILS 0.2 % (0-2); EOSINOPHILS 6.4 % (0-7); HEMATOCRIT 31.1 % (42.0-54.0); HEMOGLOBIN 10.3 g/dL (13.5-17.5); IMMATURE GRANULOCYTES 0.9 % (0-5); LYMPHOCYTE ABS# 1.25 10x3/uL (1.32-3.57); LYMPHOCYTES 12.3 % (15-50); MCH 25.8 pg (26.0-34.0); MCHC 33.1 g/dL (31.0-37.0); MCV 77.9 fL (80.0-100.0); MEAN PLATELET VOLUME 9.9 fL (7.4-10.4); MONOCYTES 11.1 % (2-11); NEUTROPHIL ABS# 7.02 10x3/uL (1.78-5.38); NEUTROPHILS 69.1 % (40-80); PLATELET COUNT 132 10x3/uL (130-400); RBC 3.99 10x6/uL (4.20-6.10); RDW 17.4 % (11.5-14.5); WBC 10.2 10x3/uL (4.8-10.8)
[2020-10-03 10:37] LABS: ANION GAP 23.6 mmol/L (8-16); CALCIUM 7.2 mg/dL (8.5-10.1); CARBON DIOXIDE 21.2 mmol/L (21.0-32.0); CREATININE - SERUM 19.4 mg/dL (0.6-1.3)
[2020-10-03 10:39] LABS: POTASSIUM - SERUM 6.8 mmol/L (3.5-5.1)
--- NOTE | 2020-10-03 10:43 | NUR ---
NURSE REPORTS CRITICAL LAB VALUES TO [facility] . NO NEW ORDERS
--- NOTE | 2020-10-03 11:33 | NUR ---
PATIENT LEAVING FOR DIALYSIS
[2020-10-03 12:19] VITALS: BP 109/66
--- NOTE | 2020-10-03 15:31 | NUR ---
PATIENT JUST GOT BACK FROM DIALYSIS.
[2020-10-03 18:23] VITALS: BP 114/74
[2020-10-03 20:21] VITALS: BP 106/68
[2020-10-04 01:37] VITALS: BP 115/74
[2020-10-04 04:49] VITALS: BP 132/69
[2020-10-04 05:50] LABS: BASOPHILS 0.1 % (0-2); EOSINOPHILS 6.9 % (0-7); HEMATOCRIT 32.8 % (42.0-54.0); HEMOGLOBIN 10.8 g/dL (13.5-17.5); IMMATURE GRANULOCYTES 0.6 % (0-5); LYMPHOCYTE ABS# 1.08 10x3/uL (1.32-3.57); LYMPHOCYTES 12.4 % (15-50); MCH 25.7 pg (26.0-34.0); MCHC 32.9 g/dL (31.0-37.0); MCV 78.1 fL (80.0-100.0); MEAN PLATELET VOLUME 10.2 fL (7.4-10.4); MONOCYTES 10.5 % (2-11); NEUTROPHIL ABS# 6.07 10x3/uL (1.78-5.38); NEUTROPHILS 69.5 % (40-80); PLATELET COUNT 140 10x3/uL (130-400); RDW 17.4 % (11.5-14.5); WBC 8.7 10x3/uL (4.8-10.8)
[2020-10-04 06:22] LABS: ANION GAP 22.4 mmol/L (8-16); CALCIUM 7.8 mg/dL (8.5-10.1); CARBON DIOXIDE 23.6 mmol/L (21.0-32.0); CREATININE - SERUM 16.1 mg/dL (0.6-1.3); PHOSPHOROUS 8.9 mg/dL (2.5-4.9); VANCOMYCIN - RANDOM 12.6 ug/mL (10.0-20.0)
[2020-10-04] MEDS ORDERED: PLAVIX75 MG PO (06:54)
[2020-10-04] MEDS ORDERED: ASPIRIN EC325 MG PO (06:55)
[2020-10-04 08:00] VITALS: BP 116/63
--- NOTE | 2020-10-04 08:33 | MORECARE ---
CASE MANAGEMENT DISCHARGE SUMMARY PATIENT: TONY MOREAU UNIT: [id number] ADM DATE: 10/01/20 AGE: 44 : 75 SEX: M ROOM/BED: D.2105 AUTHOR: LILI VILLELA PHYSICIAN: REFERRING PHYSICIAN: NNEKA SANCHEZ MD DATE OF SERVICE: 10/04/20 Case Management Discharge Planning Summary DCP REVIEW SUMMARY ANTICIPATED D/C DATE: EXPECTED LOS : CASE STATUS: DCP Initiated INITIAL REVIEW: 10/05/2020 INITIAL REVIEWER: Soni Soto FINAL DISCHARGE DISPOSITION: : FINAL REVIEWER: FINAL REVIEW DATE: DCP Focus Questions & Answers QUESTION: ANSWER : PATIENT: TONY MOREAU ENCOUNTER: [id number] MEDICAL RECORD#: [id number] ADMISSION DATE: 10/01/2020 DISCHARGE DATE: ATTENDING MD: NNEKA SANTOS : AGE: 44 MARITAL STATUS: M DC PLAN ID: [id number] FACILITY: [facility] PRINTED ON: 10/04/20 8:33 CT All edits/amendments must be made on the electronic document DICTATION DATE: 10/04/20832 PANAMA HAT SMEARER: DM 10/04/20832 RPT#: [id number] DC DATE: STATUS: ADM IN [facility] [address] [place] [address] END OF REPORT
--- NOTE | 2020-10-04 08:44 | MORECARE ---
CASE MANAGEMENT DISCHARGE SUMMARY PATIENT: TONY MOREAU UNIT: [id number] ADM DATE: 10/01/20 AGE: 44 : 75 SEX: M ROOM/BED: D.2100 AUTHOR: LILI VILLELA PHYSICIAN: REFERRING PHYSICIAN: NNEKA SANCHEZ MD DATE OF SERVICE: 10/04/20 Case Management Discharge Planning Summary COMMENTS ENTERED DATE: 10/04/20 8:34 CT COMMENT TYPE: Discharge Planning REVIEWER: Soni Soto CM received discharge orders. I met with patient to discuss discharge planning/needs, his is present in the room. He states he is completely independent with all ADL's and AIDL's. He has dialysis at [facility]. MWF at [address] He drives himself to dialysis. 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 Declines needs. Spouse is here to drive him home after dialysis. I did offer home health or DME needs, but denies needs. DCP REVIEW SUMMARY ANTICIPATED D/C DATE: EXPECTED LOS : CASE STATUS: DCP Initiated INITIAL REVIEW: 10/05/2020 INITIAL REVIEWER: Soni Soto FINAL DISCHARGE DISPOSITION: : FINAL REVIEWER: FINAL REVIEW DATE: DCP Focus Questions & Answers DCP Evaluation QUESTION: ANSWER Patient's current cognitive status: : *Oriented to person, place, situation, time and present Patient's ability to cope with chronic illness : d. No chronic illness Patient gives permission to discuss discharge plans with: (name, relationship and number) : Bryan Moreau Physical Status: : Independent with ADL's Patient with capacity for self-care or can be cared for in same environment as prior to hospitalization? : Yes Baseline cognitive status: : *Oriented to person, place, situation, time and present Would patient like to participate in any Care Coordination programs (if applicable): : Not applicable Mental health screen: : No mental health history DCP Re-evaluation QUESTION: ANSWER Would patient like to participate in any Care Coordination programs (if applicable): : Not applicable PATIENT: TONY MOREAU ENCOUNTER: [id number] MEDICAL RECORD#: [id number] ADMISSION DATE: 10/01/2020 DISCHARGE DATE: ATTENDING MD: NNEKA SANTOS : AGE: 44 MARITAL STATUS: M DC PLAN ID: [id number] FACILITY: [facility] PRINTED ON: 10/04/20 8:43 CT All edits/amendments must be made on the electronic document DICTATION DATE: 10/04/20842 DIAGNOSTIC MEDICAL SONOGRAPHER: MOHIT 10/04/20842 RPT#: [id number] DC DATE: STATUS: ADM IN [facility] [address] [place] [address] END OF REPORT
--- NOTE | 2020-10-04 09:46 | NUR ---
PATIENT TAKEN DOWN TO DIALYSIS
[2020-10-04] MEDS ORDERED: HYDROCODON-ACE1 EA10 PO ×2 (10:26→10:31)
--- NOTE | 2020-10-04 10:33 | NUR ---
WRITTEN SCRIPT FOR NORCO TO PATIENT AND COPY OF THIS TO CHART.
--- NOTE | 2020-10-04 19:30 | NUR ---
PT IN BED, AAO X 4, RESP EVEN AND UNLABORED, NO DISTRESS NOTED, CL IN REACH, SR UP X 2.
[2020-10-04 20:39] VITALS: BP 104/55
--- NOTE | 2020-10-04 21:22 | NUR ---
SPOKE WITH DR. SANCHEZ, HE STATED THAT IS IS OK FOR PT TO STAY TIL MORNING.
[2020-10-05 00:02] VITALS: BP 106/61
[2020-10-05 05:07] VITALS: BP 105/57
[2020-10-05 06:45] LABS: ANION GAP 20.4 mmol/L (8-16); CALCIUM 7.9 mg/dL (8.5-10.1); CARBON DIOXIDE 24.8 mmol/L (21.0-32.0); CREATININE - SERUM 17.4 mg/dL (0.6-1.3); POTASSIUM - SERUM 5.2 mmol/L (3.5-5.1)
[2020-10-05 06:47] LABS: PHOSPHOROUS 9.2 mg/dL (2.5-4.9)
--- NOTE | 2020-10-05 07:44 | NUR ---
AM ROUNDING DONE WITH PATIENT TAKING HIMSELF OFF BIPAP. FEMALE MEMBER ASLEEP IN CHAIR. DR SANCHEZ HERE TO SEE PATIENT. STATES THAT HE NEEDS DIALYSIS THIS AM AND THEN DISCHARGED HOME. RIGHT HAND AND RIGHT AC SEEN WITH SALINE LOCK. RESERVE LEFT ARM WITH + BRUIT AND THRILL. ON ROOM AIR.
[2020-10-05 08:11] LABS: BASOPHILS 0.1 % (0-2); HEMATOCRIT 31.9 % (42.0-54.0); HEMOGLOBIN 10.4 g/dL (13.5-17.5); LYMPHOCYTE ABS# 1.13 10x3/uL (1.32-3.57); LYMPHOCYTES 14.1 % (15-50); MCH 25.6 pg (26.0-34.0); MCHC 32.6 g/dL (31.0-37.0); MCV 78.6 fL (80.0-100.0); MEAN PLATELET VOLUME 10.1 fL (7.4-10.4); MONOCYTES 13.5 % (2-11); NEUTROPHIL ABS# 4.74 10x3/uL (1.78-5.38); NEUTROPHILS 59.3 % (40-80); PLATELET COUNT 130 10x3/uL (130-400); RBC 4.06 10x6/uL (4.20-6.10)
[2020-10-05 08:13] VITALS: BP 103/52
--- NOTE | 2020-10-05 08:28 | NUR ---
TO DIALYSIS VIA BED.
--- NOTE | 2020-10-05 12:41 | NUR ---
RETURNS FROM DIALYSIS.
--- NOTE | 2020-10-05 13:50 | NUR ---
Nutrition Follow-up: Pt out of room to dialysis at time of visit this AM. Noted plans to d/c. Diet: Renal ADA No PO intake recorded Wt: 374# (10/02) Labs noted: K+ 5.2, Glu 126, Ca 7.9, PO4 9.2 Meds noted: Protonix, PhosLo -Encourage PO intake and honor food preferences within diet restrictions. -RD will follow up within 5-7 days if pt still admitted.
--- NOTE | 2020-10-05 14:34 | NUR ---
VERBAL AND WRITTEN DISCHARGE INSTRUCTIONS GIVEN TO PATIENT ALONG WITH WRITTEN SCRIPT FOR NORCO. SALINE LOCK TO RIGHT HAND AND RIGHT AC REMOVED WITH TIP INTACT. DISCHARGED HOME VIA WHEELCHAIR.
--- NOTE | 2020-10-06 18:24 | MORECARE ---
CASE MANAGEMENT DISCHARGE SUMMARY PATIENT: TONY MOREAU UNIT: [id number] ADM DATE: 10/01/20 AGE: 44 : 75 SEX: M ROOM/BED: D.210 AUTHOR: LILI VILLELA PHYSICIAN: REFERRING PHYSICIAN: NNEKA SANCHEZ MD DATE OF SERVICE: 10/06/20 Case Management Discharge Planning Summary COMMENTS ENTERED DATE: 10/04/20 8:34 CT COMMENT TYPE: Discharge Planning REVIEWER: Soni Soto CM received discharge orders. I met with patient to discuss discharge planning/needs, his is present in the room. He states he is completely independent with all ADL's and AIDL's. He has dialysis at [facility]. MWF at [address] am[address] He drives himself to dialysis. 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 Declines needs. Spouse is here to drive him home after dialysis. I did offer home health or DME needs, but denies needs. DCP REVIEW SUMMARY ANTICIPATED D/C DATE: EXPECTED LOS : CASE STATUS: DCP Initiated INITIAL REVIEW: 10/05/2020 INITIAL REVIEWER: Soni Soto FINAL DISCHARGE DISPOSITION: : FINAL REVIEWER: FINAL REVIEW DATE: DCP Focus Questions & Answers DCP Evaluation QUESTION: ANSWER Patient gives permission to discuss discharge plans with: (name, relationship and number) : Bryan Moreau Patient's ability to cope with chronic illness : d. No chronic illness Patient's current cognitive status: : *Oriented to person, place, situation, time and present Physical Status: : Independent with ADL's Baseline cognitive status: : *Oriented to person, place, situation, time and present Patient with capacity for self-care or can be cared for in same environment as prior to hospitalization? : Yes Would patient like to participate in any Care Coordination programs (if applicable): : Not applicable Mental health screen: : No mental health history DCP Re-evaluation QUESTION: ANSWER Would patient like to participate in any Care Coordination programs (if applicable): : Not applicable PATIENT: TONY MOREAU ENCOUNTER: [id number] MEDICAL RECORD#: [id number] ADMISSION DATE: 10/01/2020 DISCHARGE DATE: 10/05/2020 ATTENDING MD: NNEKA SANTOS : AGE: 44 MARITAL STATUS: M DC PLAN ID: [id number] FACILITY: [facility] PRINTED ON: 10/06/20 18:24 CT All edits/amendments must be made on the electronic document DICTATION DATE: 10/06/201823 HAND EDGER: MOHIT 10/06/201823 RPT#: [id number] DC DATE:10/05/20 STATUS: DIS IN [facility] [address] [place] [address] END OF REPORT
== END 2020-10-05 14:36 | disposition home or self-care (01) | DRG 252 ==
LOC: D.M2 14:51
PROVIDERS: Anesthesiology; Surgery; ADMIT Internal Medicine Nephrology; ATTEND Internal Medicine Nephrology
PROC: 057 Upper Veins, Dilation (ICD-10-PCS; 2020-10-02)
PROC: 5A1D70Z Performance of Urinary Filtration, Intermittent, Less than 6 Hours Per Day (ICD-10-PCS; 2020-10-02)
PROC: 05CF0ZZ Extirpation of Matter from Left Cephalic Vein, Open Approach (ICD-10-PCS; principal; 2020-10-02 13:00)
PROC: 05WY0JZ Revision of Synthetic Substitute in Upper Vein, Open Approach (ICD-10-PCS; 2020-10-02 13:00)
DX: T82.868A Thrombosis due to vascular prosthetic devices, implants and grafts, initial encounter (principal); N18.6 End stage renal disease; I12.0 Hypertensive chronic kidney disease with stage 5 chronic kidney disease or end stage renal disease; Y83.9 Surgical procedure, unspecified as the cause of abnormal reaction of the patient, or of later complication, without mention of misadventure at the time of the procedure; E87.5 Hyperkalemia; I95.89 Other hypotension; E11.22 Type 2 diabetes mellitus with diabetic chronic kidney disease; Z99.2 Dependence on renal dialysis; K21.9 Gastro-esophageal reflux disease without esophagitis; G47.33 Obstructive sleep apnea (adult) (pediatric)